=== PATIENT | male | born 1975 | race Caucasian/White ===

== ENCOUNTER → 2016-09-23 | Outpatient (CLI) | payer OTHER ==
[~2016-09-23] MED LIST: AMPH30TA2 PO; GABA800T PO; QUET1TAB37 PO
[2016-09-23 16:32] LABS: BASO % 0.3 %; BASO ABS # 0.02 K/uL (0-0.2); COMPLETE YES; EOS % 1.3 %; HEMATOCRIT 50.4 % (42-52); IG% 0.4 %; LYMPH ABS # 2.05 K/uL (1.2-3.4); MEAN CELL VOLUME 93.3 fL (80-100); MEAN CORPUSCULAR HEMOGLOBIN 31.3 pg (25-34); MEAN CORPUSCULAR HGB CONC 33.5 g/dl (32-36); MEAN PLATELET VOLUME 10.9 fL (7.4-10.4); MONO % 8.6 %; NEUT % 63.4 %; PLATELET COUNT 249 K/uL (130-400); WHITE BLOOD COUNT 7.88 K/uL (4.8-10.8)
[2016-09-23 16:57] LABS: ALT/SGPT 114 U/L (12-78); BLOOD UREA NITROGEN 14 mg/dl (7-18); BUN/CREATININE RATIO 14.4 (10-20); CALCIUM 9.2 mg/dl (8.5-10.1); CARBON DIOXIDE 25 mmol/L (21-32); CHLORIDE 104 mmol/L (98-107); CREATININE 0.99 mg/dl (0.60-1.40); GLUCOSE 90 mg/dl (70-99); POTASSIUM 4.1 mmol/L (3.5-5.1); SODIUM 139 mmol/L (136-145)
[2016-09-23 16:58] LABS: PROTHROMBIN TIME (PATIENT) 10.7 SECONDS (9.0-12.0)
[2016-09-23 17:08] LABS: ALKALINE PHOSPHATASE 55 U/L (45-117); AST/SGOT 43 U/L (15-37); THYROID STIMULATING HORMONE 0.826 uIu/ml (0.300-4.500)
[2016-09-24 06:13] LABS: ESTIMATED AVERAGE GLUCOSE 111 mg/dl; HA1C FLAG Normal (Normal)
[2016-09-29 02:35] LABS: ANTI-CENTROMERE AB <1.0 NEG AI (<1.0 NEG); ANTI-SS-A <1.0 NEG AI (<1.0 NEG); ANTI-SS-B 2.3 POS AI (<1.0 NEG); DNA ds CRITHIDIA NEGATIVE (NEGATIVE); HEPATITIS C VIRAL RNA BY PCR 102000 IU/ML (<15); HEPATITIS C VIRAL RNA(LOG) PCR 5.01 LOG IU/ML (<1.18); LIVER FIBR APOLIPOPROTEIN A-1 184 mg/dL (94-176); LIVER FIBROS ALPHA-2-MACROGLOB 152 mg/dL (106-279); LIVER FIBROSIS GGT 85 U/L (3-95); MICROSOMAL AB 7 IU/ML (<9); NECROINFLAMMATION ACT GRADE A1-A2; NECROINFLAMMATION ACT SCORE 0.48; Sm Antibody <1.0 NEG AI (<1.0 NEG); URCREATININE 109.9 MG/DL (>/= 20)
== END | disposition home or self-care (01) ==
LOC: C.LAB1850 14:54
PROVIDERS: ATTEND Internal Medicine Infectious Disease
DX: B18.2 Chronic viral hepatitis C (principal)

== ENCOUNTER → 2016-12-12 | Outpatient (CLI) | payer OTHER | END | disposition home or self-care (01) | LOC: C.LAB1850 11:55 | PROVIDERS: ATTEND Internal Medicine Infectious Disease | DX: B18.2 Chronic viral hepatitis C (principal) ==

== ENCOUNTER 2024-08-12 13:13 | Observation (INO) ==
--- NOTE | 2024-08-12 15:02 | Emergency Department Note ---
Impression & Plan Abdominal pain, Rectus sheath hematoma ED Provider Note NAME: SHIRA DEE II AGE: 48 SEX: M : 1975 ARRIVES VIA: Ambulance INFORMANT: Patient ED PROVIDER(S): Christian Velasquez DO CHIEF COMPLAINT: Abdominal pain HPI: Patient is a 48-year-old male who presents to the ER with a past medical history of DJD, bronchitis and influenza for abdominal pain. Pain started a week ago. He notes he started having bruising just below his bellybutton about 3 days ago. Denies any headache or change in vision. No chest pain or shortness of breath. Admits to nausea but no vomiting or diarrhea. Denies any dysuria, urgency, or frequency. No other exacerbating or remitting factors. ADDITIONAL HISTORY OBTAINED: Per HPI Chronic Medical/Social Conditions Affecting Care: Per HPI PAST MEDICAL HISTORY:See Below PAST SURGICAL HISTORY:See Below FAMILY HISTORY:See Below SOCIAL HISTORY:See Below HOME MEDICATIONS:See Below ALLERGIES:See Below VITALS:See Below PHYSICAL EXAMINATION: GENERAL: Sitting up in bed, alert, well appearing, well nourished, no distress, non-toxic EYE EXAM: normal conjunctiva. OROPHARYNX: no exudate, no erythema, lips, buccal mucosa, and tongue normal and mucous membranes are moist NECK: supple, no nuchal rigidity, no adenopathy, non-tender LUNGS: Clear to auscultation. Normal chest wall mechanics HEART: no murmurs, S1 normal and S2 normal ABDOMEN: abdomen soft, tender in the Periumbilical region with bruising present infraumbilically, normo-active bowel sounds, no masses, no rebound or guarding. UPPER EXTREMITIES: upper extremities are grossly normal. LOWER EXTREMITIES: No pitting edema. NEURO EXAM: Normal sensorium, cranial nerves II-XII grossly intact, normal speech, no gross weakness of arms, no gross weakness of legs. MEDICAL DECISION MAKING: Patient is a 48-year-old male who presents to the ER for periumbilical pain and bruising. No trauma. Denies blood thinners. IV was established and blood work was obtained. Labs show mild leukocytosis of 12,000. No significant anemia. BMP along with LFTs bilirubin was unremarkable. Lipase was normal. UA was clean. CT abdomen pelvis shows rectus sheath hematomas. He was given Toradol initially and then morphine following the result of the CT. Case was discussed with Dr. Marie Her from general surgery. She recommended admission to the hospitalist. [facility] treatment. Patient was updated at bedside. Consults/Care Managements Discussions: Per [facility] Triage Nursing notes reviewed. Limited review of prior medical records performed Vital Signs: reviewed and remarkable for no significant abnormalities Differential diagnosis: Differential diagnoses includes but is not limited to gastritis, peptic ulcer disease, GERD, gallbladder disease, pancreatitis, small bowel obstruction, appendicitis, diverticulitis, hernia, urinary tract infection, torsion, perforation, trauma, infectious. ER treatment provided: See below Diagnostics interpreted by me include EKG and cardiac monitoring as listed below: -Cardiac Monitoring: An order was placed for continuous cardiac monitoring. The monitor shows a rate of 80 with sinus rhythm. -ECG: none -Laboratory studies:Interpreted by me as stated above in MDM and shown below. Imaging studies: Xrays: As interpreted by me:none CTs show: CT abdomen pelvis per my preliminary interpretation showed no obvious bowel obstruction CT abdomen pelvis per radiology showed rectus sheath hematomas Procedures:none Critical Care: None Past Med/Surg History Problem List (Updated 08/12/24 @ 18:32 by Christian Velasquez DO) Rectus sheath hematoma (Acute) Abdominal pain (Acute) Influenza A (Acute) Wrist pain, right (Acute) Right ankle sprain (Acute) Overdose Heroin overdose (Acute) DJD (degenerative joint disease), cervical (Acute) Chest wall pain (Acute) Bronchitis (Acute) Avulsion, finger tip (Acute) Aspiration pneumonia (Acute) Medical History ADHD Surgical History Previous back surgery Social History Smoking Status: Former smoker Tobacco Type: Cigarettes Preferred Language: Nigerian Feels Safe at Home: Yes Allergies Allergies Allergy/AdvReac Type Severity Reaction Status Date / Time No Known Allergies Allergy Unknown Verified 08/12/24 16:35 Home Meds Home Medications Medication Instructions Recorded Confirmed acetaminophen 500 mg tablet 1,000 mg PO Q6H PRN Fever Or Pain 05/20/23 08/12/24 (Tylenol Extra Strength) ibuprofen 200 mg tablet (Advil) 400 mg PO Q6H PRN Fever Or Pain 05/20/23 08/12/24 Results & Data (ED) Vital Signs Vital Signs - 24 hr 08/12/24 13:27 08/12/24 16:33 08/12/24 16:33 Temperature 36.6 C Temperature Source Skin Pulse Rate 101 H 78 Pulse Rate [Apical] 77 Pulse Rhythm Regular Pulse Rhythm [Apical] Regular Respiratory Rate 18 22 22 Respiratory Effort / Characteristics Non-Labored Spontaneous Non-Labored Spontaneous Respiratory Depth Normal Normal Respiratory Pattern Regular Regular Blood Pressure 139/81 Blood Pressure [Right Arm] 150/106 H Blood Pressure Mean 100 Blood Pressure Mean [Right Arm] 120 Blood Pressure Position [Right Arm] Pulse Oximetry 93 93 93 Oxygen Delivery Method Room Air Room Air Room Air Sepsis Recent Fever Within 48 Hours No Sepsis New/Unexplained Change in Mental Status N/A Sepsis Action Taken by Nursing No Action Required 08/12/24 16:49 08/12/24 18:28 Temperature Temperature Source Pulse Rate 85 Pulse Rate [Apical] 76 Pulse Rhythm Pulse Rhythm [Apical] Regular Respiratory Rate 20 Respiratory Effort / Characteristics Non-Labored Spontaneous Respiratory Depth Normal Respiratory Pattern Regular Blood Pressure Blood Pressure [Right Arm] 142/100 H Blood Pressure Mean Blood Pressure Mean [Right Arm] 114 Blood Pressure Position [Right Arm] Lying Pulse Oximetry 95 Oxygen Delivery Method Room Air Sepsis Recent Fever Within 48 Hours Sepsis New/Unexplained Change in Mental Status Sepsis Action Taken by Nursing Laboratory Data 08/12/24 14:41 08/12/24 14:41 Lab Results 08/12/24 08/12/24 Range/Units 14:41 17:04 WBC 12.76 H (4.8-10.8) K/ul RBC 4.66 L (4.70-6.10) M/uL Hgb 14.2 (14.0-18.0) g/dl Hct 41.3 L (42.0-52.0) % MCV 88.6 (80.0-100.0) fL MCH 30.5 (25.0-34.0) pg MCHC 34.4 (32.0-36.0) g/dL RDW Std Deviation 41.9 (36.4-46.3) fL RDW Coeff of Yury 13.0 (11.5-14.5) % Plt Count 420 H (130-400) K/uL MPV 9.6 (9.4-12.4) fL Immature Gran % (Auto) 1.3 % Neut % (Auto) 75.0 % Lymph % (Auto) 15.1 % [place] % (Auto) 6.3 % Eos % (Auto) 2.0 % Baso % (Auto) 0.3 % Neut # (Auto) 9.57 H (1.40-6.50) K/uL Lymph # (Auto) 1.93 (1.20-3.40) K/uL [place] # (Auto) 0.81 H (0.11-0.59) K/uL Eos # (Auto) 0.25 (0.00-0.50) K/uL Baso # (Auto) 0.04 (0.00-0.20) K/uL Immature Gran # (Auto) 0.16 (0.01-0.20) K/uL Sodium 141 (136-145) mmol/L Potassium 3.6 (3.5-5.1) mmol/L Chloride 103 (98-107) mmol/L Carbon Dioxide 32 (21-32) mmol/L Anion Gap 6 (3-11) BUN 13 (6-23) mg/dl Creatinine 0.94 (0.6-1.4) mg/dl Est Cr Clr Drug Dosing Not Reportable eGFR 98.76 BUN/Creatinine Ratio 13.8 (10-20) Glucose 96 (70-99(Fasting)) mg/dl Calcium 9.2 (8.6-10.3) mg/dl Total Bilirubin 0.5 (0.2-1.0) mg/dl AST 32 (13-39) U/L ALT 31 (7-52) U/L Alkaline Phosphatase 50 (34-104) U/L Total Protein 7.5 (6.0-8.3) gm/dl Albumin 4.2 (3.4-5.0) gm/dl Globulin 3.3 (2.5-4.0) gm/dl Albumin/Globulin Ratio 1.3 (0.9-2) Lipase 12 (11-82) U/L Urine Color Yellow Urine Appearance Clear (Clear) Urine pH 6.0 (4.5-7.5) Ur Specific [place] > 1.045 H (1.000-1.030) Urine Protein Negative (Negative) Urine Glucose (UA) Negative (Negative) Urine Ketones Negative (Negative) Urine Blood Negative (Negative) Urine Nitrite Negative (Negative) Urine Bilirubin Negative (Negative) Urine Urobilinogen Negative (Negative) Ur Leukocyte Esterase Negative (Negative) Administered Medications Discontinued Medications Ioversol (Optiray 320 125ml) 93 ml IV ONCE ONE Stop: 08/12/24 16:07 Last Admin: 08/12/24 16:06 Dose: 93 ml Documented By: MACARIO Ketorolac Tromethamine (Ketorolac Tromethamine 15 Mg/Ml Vial) 10 mg IV NOW ONE Stop: 08/12/24 15:48 Last Admin: 08/12/24 16:28 Dose: 10 mg Documented By: RUSSEL Morphine Sulfate (Morphine Sulfate 2 Mg/Ml Carp) 2 mg IV NOW STA Stop: 08/12/24 18:10 Last Admin: 08/12/24 18:13 Dose: 2 mg Documented By: ROBERT Imaging Data Radiologist's Impression: Abdomen/Pelvis CT 08/12/24 15:00 CT ABDOMEN and PELVIS with INTRAVENOUS CONTRAST HISTORY: Abdominal pain TECHNIQUE: CT abdomen and pelvis with contrast. IV CONTRAST: 100 mL of OMNIPAQUE 300 ENTERIC CONTRAST: Not Given COMPARISON: None FINDINGS: LOWER CHEST: Multifocal pneumonia in the lung bases left greater than right. LIVER: Incomplete characterized 4.1 cm right hepatic hypodensity may represent a cyst or a hemangioma in the absence of significant past medical history. GALLBLADDER/BILIARY: Unremarkable gallbladder. No abnormal biliary dilatation. SPLEEN: Unremarkable. PANCREAS: Unremarkable. ADRENALS: Unremarkable. KIDNEYS: Tiny cysts. No stones or hydronephrosis identified. PERITONEUM/RETROPERITONEUM. Mildly prominent portacaval lymph nodes. No aortic aneurysm. GASTROINTESTINAL: No obstruction. There is a very mild pericolonic inflammation surrounding the sigmoid colon centered about prominent sized diverticula. Appendix is normal. Multiple loops of small bowel demonstrate inflammatory changes with mild wall thickening. REPRODUCTIVE: Mildly enlarged prostate gland. ABDOMINAL Wall: Small fat-containing left larger than right inguinal hernias. There are expansile changes to the rectus abdominis muscles, left larger than right with mostly hyperdense mixed density materials. URINARY axis bladder: Moderate perivesical inflammation BONES: No acute findings. IMPRESSION: Predominately hyperdense, mixed density material resulting in expansile changes of left larger than right rectus abdominis muscles. These are suggestive of rectus sheath hematomas. Please correlate clinically. Moderate inflammation of the urinary bladder suggesting cystitis and/or urinary bladder outlet obstruction with enlarged prostate gland. Please correlate urinalysis as well as PSA. Mild sigmoid colonic diverticulitis and enteritis suggested. Multifocal pneumonia in the lung bases, left worse than right. Electronically signed by Baldo Denise 08-12-2024 5:03 PM Discharge Plan Visit Data Chief Complaint: Abdominal Pain ED Provider: Christian Velasquez Discharge Problem: Abdominal pain, Rectus sheath hematoma Forms Stand Alone Forms: [employer] Prescriptions Prescriptions: No Action acetaminophen [Tylenol Extra Strength] 500 mg Tablet 1,000 mg PO Q6H PRN (Reason: Fever Or Pain) ibuprofen [Advil] 200 mg Tablet 400 mg PO Q6H PRN (Reason: Fever Or Pain) Referrals Referrals: Jez Romero MD [Primary Care Provider] - Discharge Problem: Abdominal pain Qualifiers: Abdominal location: unspecified location Qualified Code(s): R10.9 - Unspecified abdominal pain Rectus sheath hematoma Qualifiers: Encounter type: initial encounter Qualified Code(s): S30.1XXA - Contusion of abdominal wall, initial encounter
[2024-08-12 15:41] LABS: Basophils # (auto) 0.04 K/uL (0.00-0.20); Basophils % (auto) 0.3 %; Eosinophils # (auto) 0.25 K/uL (0.00-0.50); Hematocrit (blood only) 41.3 % (42.0-52.0); Hemoglobin 14.2 g/dl (14.0-18.0); Immature Granulocytes # (auto) 0.16 K/uL (0.01-0.20); Immature Granulocytes % (auto) 1.3 %; Lymphocytes # (auto) 1.93 K/uL (1.20-3.40); Lymphocytes % (auto) 15.1 %; Mean Corpuscular Hemoglobin 30.5 pg (25.0-34.0); Mean Corpuscular Hgb Conc 34.4 g/dL (32.0-36.0); Mean Corpuscular Volume 88.6 fL (80.0-100.0); Mean Platelet Volume 9.6 fL (9.4-12.4); Monocytes # (auto) 0.81 K/uL (0.11-0.59); Monocytes % (auto) 6.3 %; Neutrophils # (auto) 9.57 K/uL (1.40-6.50); Platelet Count 420 K/uL (130-400); RDW Standard Deviation 41.9 fL (36.4-46.3); Red Blood Count 4.66 M/uL (4.70-6.10); White Blood Count 12.76 K/ul (4.8-10.8)
[2024-08-12 15:43] LABS: Alanine Aminotransferase 31 U/L (7-52); Albumin Globulin Ratio 1.3 (0.9-2); Albumin Level 4.2 gm/dl (3.4-5.0); Alkaline Phosphatase 50 U/L (34-104); Anion Gap 6 (3-11); Aspartate Aminotransferase 32 U/L (13-39); BUN Creatinine Ratio 13.8 (10-20); Bilirubin,Total 0.5 mg/dl (0.2-1.0); Blood Urea Nitrogen 13 mg/dl (6-23); Calcium 9.2 mg/dl (8.6-10.3); Carbon Dioxide 32 mmol/L (21-32); Chloride 103 mmol/L (98-107); Globulin 3.3 gm/dl (2.5-4.0); Glucose 96 mg/dl (70-99(Fasting)); Lipase 12 U/L (11-82); Potassium 3.6 mmol/L (3.5-5.1); Sodium 141 mmol/L (136-145); Total Protein 7.5 gm/dl (6.0-8.3)
[2024-08-12] MEDS: OPTIRAY 320 125ml IV ONE (16:06)
[2024-08-12] MEDS: KETOROLAC TROMETHAMINE 15 MG/ML VIAL IV ONE (16:28)
--- NOTE | 2024-08-12 17:04 | CT Scan Report ---
CT ABDOMEN and PELVIS with INTRAVENOUS CONTRAST HISTORY: Abdominal pain TECHNIQUE: CT abdomen and pelvis with contrast. IV CONTRAST: 100 mL of OMNIPAQUE 300 ENTERIC CONTRAST: Not Given COMPARISON: None FINDINGS: LOWER CHEST: Multifocal pneumonia in the lung bases left greater than right. LIVER: Incomplete characterized 4.1 cm right hepatic hypodensity may represent a cyst or a hemangioma in the absence of significant past medical history. GALLBLADDER/BILIARY: Unremarkable gallbladder. No abnormal biliary dilatation. SPLEEN: Unremarkable. PANCREAS: Unremarkable. ADRENALS: Unremarkable. KIDNEYS: Tiny cysts. No stones or hydronephrosis identified. PERITONEUM/RETROPERITONEUM. Mildly prominent portacaval lymph nodes. No aortic aneurysm. GASTROINTESTINAL: No obstruction. There is a very mild pericolonic inflammation surrounding the sigmoid colon centered about prominent sized diverticula. Appendix is normal. Multiple loops of small bowel demonstrate inflammatory changes with mild wall thickening. REPRODUCTIVE: Mildly enlarged prostate gland. ABDOMINAL Wall: Small fat-containing left larger than right inguinal hernias. There are expansile changes to the rectus abdominis muscles, left larger than right with mostly hyperdense mixed density materials. URINARY axis bladder: Moderate perivesical inflammation BONES: No acute findings. IMPRESSION: Predominately hyperdense, mixed density material resulting in expansile changes of left larger than right rectus abdominis muscles. These are suggestive of rectus sheath hematomas. Please correlate clinically. Moderate inflammation of the urinary bladder suggesting cystitis and/or urinary bladder outlet obstruction with enlarged prostate gland. Please correlate urinalysis as well as PSA. Mild sigmoid colonic diverticulitis and enteritis suggested. Multifocal pneumonia in the lung bases, left worse than right. Electronically signed by Baldo Denise 08-12-2024 5:03 PM
[2024-08-12 17:44] LABS: Appearance Urine Clear (Clear); Bilirubin Urine Negative (Negative); Blood Urine Negative (Negative); Color Urine Yellow; Glucose Urine UA Negative (Negative); Ketones Urine Negative (Negative); Leukocyte Esterase Urine Negative (Negative); Nitrite Urine Negative (Negative); Protein Urine Negative (Negative); Specific Gravity Urine > 1.045 (1.000-1.030); Urobilinogen Urine Negative (Negative)
[2024-08-12] MEDS: MoRPHine SULFATE 2 MG/ML CARP IV STA (18:13)
--- NOTE | 2024-08-12 19:08 | History & Physical Report ---
Date of Service August 12, 2024 Assessment & Plan (1) Rectus sheath hematoma: Plan: -bilaterally noted on CT scan -in setting of severe coughing (witnessed in room) and significant NSAID use, also significant use of muscles while working on car -hemodynamically stable, stable Hgb which is at baseline -denies other trauma, feels safe at home, denies drug use -other differentials include drug use in abdomen, hereditary bleeding disorder -ED discussed with general surgery, admit for observation Plan: -supportive management -general surgery consult in AM if Hgb drop or pain worsens -tylenol for pain management -trend Hgb daily -will need referal from PCP for coagulation workup at discharge -check PT INR, PT (2) Diverticulitis: Plan: -likely small contributer to abdominal pain Plan: -progress diet as tolerated -encourage fluid intake (3) Abdominal pain due to injury: Plan: -tylenol for pain (4) CAP (community acquired pneumonia): Plan: -as noted by recent SOB and fever -recent flu a -patient appears to be improving clinically, however imaging suggestive of overlying bacterial CAP Plan: -MRSA swab given recent influenza A, if positive switch to MRSA coverage -sputum culture ordered -agumentin/azithromycin for now -tessalon perles scheduled for cough given likely cause of bleed (5) Tobacco use disorder, continuous: Plan: -chewing tobacco only now Plan Feeding/fluids: regular Analgesia: tylenol Sedation: none Thromboprophylaxis: SCDs Head up position: 30 degrees Ulcer prophylaxis: none Glycemic control: none Spontaneous breathing trial: none Bowel care: miralax Indwelling catheter removal: none Deescalation of antibiotics: augmentin/azithromycin day 08/14 I spent a total of 75 minutes coordinating, documenting, and providing care for this patient excluding time spent in the performance of separately billed services. Admission and Anticipated Discharge Date Anticipated date of discharge: 08/12/24 History of Present Illness Chief Complaint: abdominal pain Primary Care Provider: Jez Romero MD 48-year-old male with past medical history GERD, ADHD, hepatitis C (treated),, hx of heroin use (in remission), history of tobacco use, bronchitis who presents for abdominal pain. Abdominal pain has been worsening over the past week and a half. A little after Cora he presented with a cough and fever at which time he was prescribed antibiotics. However, he did not fruit picker the antibiotics. His cough is continued to worsen although he is starting to feel better. A few days ago when he was working on his car he noticed a snap sensation while he was coughing in his abdomen. He then noticed blood started to develop around his umbilicus. Pain then began to worsen around his umbilicus and suprapubic region. Then the day after again while he was working on his car he noticed there was a snap and he started to have some pain under his right arm as well. Does have some nausea but no vomiting. States he takes several Aleve in the morning with his Tylenol. Taking more since the pain started denies any trauma. Denies anyone the family with a bleeding disorder. Chews tobacco but does not smoke. Denies drug use. Will drinker every few weeks. Allergies Allergy/AdvReac Type Severity Reaction Status Date / Time No Known Allergies Allergy Unknown Verified 08/12/24 16:35 Home Medications Medication Instructions Recorded Confirmed Type acetaminophen 500 mg tablet 1,000 mg PO Q6H PRN Fever Or Pain 05/20/23 08/12/24 History (Tylenol Extra Strength) ibuprofen 200 mg tablet (Advil) 400 mg PO Q6H PRN Fever Or Pain 05/20/2308/12 History Past Med/Surg History Problem List (Updated 08/12/24 @ 19:12 by Jeevan Rogers MD) Rectus sheath hematoma (Acute) Abdominal pain due to injury CAP (community acquired pneumonia) Diverticulitis (02/06/13) Tobacco use disorder, continuous Medical History Drug abuse (04/28/13) Deep venous thrombosis (02/06/13) Influenza A Heroin overdose DJD (degenerative joint disease), cervical Chest wall pain Bronchitis Avulsion, finger tip Aspiration pneumonia ADHD Surgical History Previous back surgery Social History Smoking Status: Former smoker Tobacco Type: Cigarettes Preferred Language: Luxembourgish Feels Safe at Home: Yes Review of Systems Review of Systems: CONSTITUTIONAL: Patient denies fevers, chills, sweats and weight changes. EYES: Patient denies any visual symptoms. EARS, NOSE, AND THROAT: No difficulties with hearing. No symptoms of rhinitis or sore throat. CARDIOVASCULAR: Patient denies chest pains, palpitations, orthopnea and paroxysmal nocturnal dyspnea. RESPIRATORY: No dyspnea on exertion, no wheezing or cough. GI: abdominal pain, echymosses on abdomen : No urinary hesitancy or dribbling. No nocturia or urinary frequency. No abnormal urethral discharge. MUSCULOSKELETAL: No myalgias or arthralgias. NEUROLOGIC: No chronic headaches, no seizures. Patient denies numbness, tingling or weakness. PSYCHIATRIC: Patient denies problems with mood disturbance. No problems with anxiety. ENDOCRINE: No excessive urination or excessive thirst. DERMATOLOGIC: Patient denies any rashes or skin changes. Physical Exam Physical Exam: Gen: A&O 3 NAD HEENT: NCAT, EOMI, not icteric. External ears normal. No rhinorrhea. Moist mucous membranes. Neck: Supple, full range of motion, no observable masses, No meningeal sign. Lungs: No Respiratory distress. CV: RRR, no edema. Abdomen: tender to palpation without peritoneal symptoms in periumbilical and suprapubic regions MSK: No joint swelling, no redness. Skin: ecchymoses in periumbilical distribution Neuro: Normal Gait, Grossly intact. Psych: Appropriate for situation. Results & Data Results & Data Vital Signs (Past 12 Hours) Vital Signs Temp Pulse Pulse Resp BP BP Pulse Ox 08/12/24 18:28 76 20 142/100 H 95 08/12/24 16:49 85 08/12/24 16:33 78 22 93 08/12/24 16:33 77 22 150/106 H 93 08/12/24 13:27 36.6 C 101 H 18 139/81 93 O2 Del Method 08/12/24 18:28 Room Air 08/12/24 16:49 08/12/24 16:33 Room Air 08/12/24 16:33 Room Air 08/12/24 13:27 Room Air Laboratory Results Laboratory Results WBC 12.76 K/ul (4.8-10.8) H 08/12/24 14:41 RBC 4.66 M/uL (4.70-6.10) L 08/12/24 14:41 Hgb 14.2 g/dl (14.0-18.0) 08/12/24 14:41 Hct 41.3 % (42.0-52.0) L 08/12/24 14:41 MCV 88.6 fL (80.0-100.0) 08/12/24 14:41 MCH 30.5 pg (25.0-34.0) 08/12/24 14:41 MCHC 34.4 g/dL (32.0-36.0) 08/12/24 14:41 RDW Std Deviation 41.9 fL (36.4-46.3) 08/12/24 14:41 RDW Coeff of Yury 13.0 % (11.5-14.5) 08/12/24 14:41 Plt Count 420 K/uL (130-400) H 08/12/24 14:41 MPV 9.6 fL (9.4-12.4) 08/12/24 14:41 Immature Gran % (Auto) 1.3 % 08/12/24 14:41 Neut % (Auto) 75.0 % 08/12/24 14:41 Lymph % (Auto) 15.1 % 08/12/24 14:41 [place] % (Auto) 6.3 % 08/12/24 14:41 Eos % (Auto) 2.0 % 08/12/24 14:41 Baso % (Auto) 0.3 % 08/12/24 14:41 Neut # (Auto) 9.57 K/uL (1.40-6.50) H 08/12/24 14:41 Lymph # (Auto) 1.93 K/uL (1.20-3.40) 08/12/24 14:41 [place] # (Auto) 0.81 K/uL (0.11-0.59) H 08/12/24 14:41 Eos # (Auto) 0.25 K/uL (0.00-0.50) 08/12/24 14:41 Baso # (Auto) 0.04 K/uL (0.00-0.20) 08/12/24 14:41 Immature Gran # (Auto) 0.16 K/uL (0.01-0.20) 08/12/24 14:41 Sodium 141 mmol/L (136-145) 08/12/24 14:41 Potassium 3.6 mmol/L (3.5-5.1) 08/12/24 14:41 Chloride 103 mmol/L (98-107) 08/12/24 14:41 Carbon Dioxide 32 mmol/L (21-32) 08/12/24 14:41 Anion Gap 6 (3-11) 08/12/24 14:41 BUN 13 mg/dl (6-23) 08/12/24 14:41 Creatinine 0.94 mg/dl (0.6-1.4) 08/12/24 14:41 Est Cr Clr Drug Dosing Not Reportable 08/12/24 14:41 eGFR 98.76 08/12/24 14:41 BUN/Creatinine Ratio 13.8 (10-20) 08/12/24 14:41 Glucose 96 mg/dl (70-99(Fasting)) 08/12/24 14:41 Calcium 9.2 mg/dl (8.6-10.3) 08/12/24 14:41 Total Bilirubin 0.5 mg/dl (0.2-1.0) 08/12/24 14:41 AST 32 U/L (13-39) 08/12/24 14:41 ALT 31 U/L (7-52) 08/12/24 14:41 Alkaline Phosphatase 50 U/L (34-104) 08/12/24 14:41 Total Protein 7.5 gm/dl (6.0-8.3) 08/12/24 14:41 Albumin 4.2 gm/dl (3.4-5.0) 08/12/24 14:41 Globulin 3.3 gm/dl (2.5-4.0) 08/12/24 14:41 Albumin/Globulin Ratio 1.3 (0.9-2) 08/12/24 14:41 Lipase 12 U/L (11-82) 08/12/24 14:41 Urine Color Yellow 08/12/24 17:04 Urine Appearance Clear (Clear) 08/12/24 17:04 Urine pH 6.0 (4.5-7.5) 08/12/24 17:04 Ur Specific [place] > 1.045 (1.000-1.030) H 08/12/24 17:04 Urine Protein Negative (Negative) 08/12/24 17:04 Urine Glucose (UA) Negative (Negative) 08/12/24 17:04 Urine Ketones Negative (Negative) 08/12/24 17:04 Urine Blood Negative (Negative) 08/12/24 17:04 Urine Nitrite Negative (Negative) 08/12/24 17:04 Urine Bilirubin Negative (Negative) 08/12/24 17:04 Urine Urobilinogen Negative (Negative) 08/12/24 17:04 Ur Leukocyte Esterase Negative (Negative) 08/12/24 17:04 Impressions Abdomen/Pelvis CT 08/12/24 15:00 CT ABDOMEN and PELVIS with INTRAVENOUS CONTRAST HISTORY: Abdominal pain TECHNIQUE: CT abdomen and pelvis with contrast. IV CONTRAST: 100 mL of OMNIPAQUE 300 ENTERIC CONTRAST: Not Given COMPARISON: None FINDINGS: LOWER CHEST: Multifocal pneumonia in the lung bases left greater than right. LIVER: Incomplete characterized 4.1 cm right hepatic hypodensity may represent a cyst or a hemangioma in the absence of significant past medical history. GALLBLADDER/BILIARY: Unremarkable gallbladder. No abnormal biliary dilatation. SPLEEN: Unremarkable. PANCREAS: Unremarkable. ADRENALS: Unremarkable. KIDNEYS: Tiny cysts. No stones or hydronephrosis identified. PERITONEUM/RETROPERITONEUM. Mildly prominent portacaval lymph nodes. No aortic aneurysm. GASTROINTESTINAL: No obstruction. There is a very mild pericolonic inflammation surrounding the sigmoid colon centered about prominent sized diverticula. Appendix is normal. Multiple loops of small bowel demonstrate inflammatory changes with mild wall thickening. REPRODUCTIVE: Mildly enlarged prostate gland. ABDOMINAL Wall: Small fat-containing left larger than right inguinal hernias. There are expansile changes to the rectus abdominis muscles, left larger than right with mostly hyperdense mixed density materials. URINARY axis bladder: Moderate perivesical inflammation BONES: No acute findings. IMPRESSION: Predominately hyperdense, mixed density material resulting in expansile changes of left larger than right rectus abdominis muscles. These are suggestive of rectus sheath hematomas. Please correlate clinically. Moderate inflammation of the urinary bladder suggesting cystitis and/or urinary bladder outlet obstruction with enlarged prostate gland. Please correlate urinalysis as well as PSA. Mild sigmoid colonic diverticulitis and enteritis suggested. Multifocal pneumonia in the lung bases, left worse than right. Electronically signed by Baldo Denise 08-12-2024 5:03 PM Code Status & VTE Plan Code Status full code VTE Prophylaxis Plan VTE Prophylaxis will be ordered: Yes Reason for no VTE drug order: Contraindicated (1) Rectus sheath hematoma Encounter type: initial encounter Qualified Code(s): S30.1XXA - Contusion of abdominal wall, initial encounter (4) CAP (community acquired pneumonia) Laterality: right Lung location: lower lobe of lung Qualified Code(s): J18.9 - Pneumonia, unspecified organism
[2024-08-12 20:10] LABS: Prothrombin Time 10.8 Seconds (9.0-12.0)
[2024-08-12] MEDS: AZITHROMYCIN 250 MG TAB PO SCH (20:22)
[2024-08-12] MEDS: BENZONATATE 100 MG CAPSULE PO SCH (20:23)
[2024-08-12 20:24] LABS: Influenza A virus by PCR Negative (Neg); Influenza B virus by PCR Negative (Neg); RSV by PCR Negative (Neg); SARS CoV2 RNA(COVID-19) Ceph NEGATIVE (Negative)
[2024-08-12 20:45] LABS: Partial Thromboplastin Time 26 Seconds (21-31)
[2024-08-12] MEDS ORDERED: POLYETHYLENE (MIRALAX) 17 GM PACK PO PRN (21:52)
[2024-08-12] MEDS ORDERED: MELATONIN 3 MG TAB PO PRN (22:48)
[2024-08-12 23:22] VITALS: RESP 18
[2024-08-13 07:11] LABS: Hematocrit (blood only) 38.5 % (42.0-52.0); Hemoglobin 12.9 g/dl (14.0-18.0); Mean Corpuscular Hemoglobin 29.1 pg (25.0-34.0); Mean Corpuscular Hgb Conc 33.5 g/dL (32.0-36.0); Mean Corpuscular Volume 86.9 fL (80.0-100.0); Mean Platelet Volume 9.6 fL (9.4-12.4); Platelet Count 372 K/uL (130-400); RDW Coefficient of Variation 13.2 % (11.5-14.5); RDW Standard Deviation 41.7 fL (36.4-46.3); Red Blood Count 4.43 M/uL (4.70-6.10); White Blood Count 12.76 K/ul (4.8-10.8)
[2024-08-13 07:21] VITALS: BP 131/77; TEMP 98.2; O2SAT 93
[2024-08-13 07:54] LABS: BUN Creatinine Ratio 17.7 (10-20); Calcium 8.4 mg/dl (8.6-10.3); Creatinine Clr Calc Pharmacy 144.7 ml/min; Potassium 3.7 mmol/L (3.5-5.1)
[2024-08-13] MEDS: AMOXICILLIN/CLAVULANATE 875 MG TAB PO SCH (08:14)
[2024-08-13] MEDS: oxyCODONE HCL IR 5 MG TAB (IMMEDIATE RELEASE) PO PRN (08:15)
[2024-08-13] MEDS: ACETAMINOPHEN 500 MG TAB PO PRN (08:15)
--- NOTE | 2024-08-13 09:55 | Discharge Summary ---
Discharge Summary Date of Service August 13, 2024 Principal Dx & Hospital Course #1 = Principal Diagnosis (1) Rectus sheath hematoma: (2) Diverticulitis: (3) Abdominal pain due to injury: (4) Tobacco use disorder, continuous: -chewing tobacco only now Notes For Next Care Provider Medication Changes From Visit No additional medication, recommended to avoid NSAIDs in the meantime Admission HPI Per Admitting Provider 48-year-old male with past medical history GERD, ADHD, hepatitis C (treated),, hx of heroin use (in remission), history of tobacco use, bronchitis who presents for abdominal pain. Abdominal pain has been worsening over the past week and a half. A little after Cora he presented with a cough and fever at which time he was prescribed antibiotics. However, he did not peanut picker the antibiotics. His cough is continued to worsen although he is starting to feel better. A few days ago when he was working on his car he noticed a snap sensation while he was coughing in his abdomen. He then noticed blood started to develop around his umbilicus. Pain then began to worsen around his umbilicus and suprapubic region. Then the day after again while he was working on his car he noticed there was a snap and he started to have some pain under his right arm as well. Does have some nausea but no vomiting. 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 Also there was some element of diverticulitis and sigmoid on the CT of the abdomen but again patient is clinically asymptomatic so this does not require treatment, patient is otherwise stable, he is not in great pain, I recommended that patient managed his pain with Tylenol, otherwise with avoiding strenuous activities, he can be discharged home. This ecchymotic area is expected to recover and resolved by itself, patient to return to the emergency room or PCP in case of any worsening. Updated Medication List Medication Instructions Recorded Confirmed Type acetaminophen 500 mg tablet 1,000 mg PO Q6H PRN Fever Or Pain 05/20/23 08/12/24 History (Tylenol Extra Strength) Hospital Stay Data Consultations 08/12/24 18:31 ED Decision to Admit Stat Diagnostic Imagining Performed 08/12/24 15:00 CT abd pelvis IV con only Stat Pending Results Patient Have Any Pending Studies at Discharge: No Discharge Instructions Given to Patient (Per Discharging Provider) To avoid strenuous activities until complete recovery, avoid using NSAIDs in the meantime and only take Tylenol. Total Time Total Time Spent Total Time Spent (In Minutes): Less than 35 minutes
[2024-08-13] MEDS: INFLUENZA VACC TS2024-25(6m+)/PF (IIV3) 0.5mL Syr IM ONE (11:24)
[2024-08-13] MEDS: PNEUMOCOCCAL VACCINE (PCV20) 20-VAL CONJ-DIP CRM/PF 0.5 ML SYR IM ONE (11:25)
[2024-08-13 11:40] VITALS: PULSE 71
== END 2024-08-13 12:00 | disposition home or self-care (01) ==
LOC: 3W 13:13 → ED 13:13 → SUATTDRO 18:51 → 3W 21:28